=== PATIENT | male | born 1940 | race Caucasian/White ===

== ENCOUNTER 2020-11-29 17:04 | Inpatient (IN) | payer MEDICARE, BC ==
[~2020-11-29] VITALS: Ht 177.8 cm; Wt 68.9 kg
[2020-11-29] MEDS ORDERED: LISI2.5T2 PO (18:46)
[2020-11-29] MEDS ORDERED: ASCO-352 PO (18:46)
[2020-11-29] MEDS ORDERED: ATOR40TA PO (18:46)
[2020-11-29] MEDS ORDERED: MULT-447 PO (18:46)
[2020-11-29] MEDS ORDERED: UBID100C13 PO (18:46)
[2020-11-29] MEDS ORDERED: LEVE500T20 PO (18:46)
[2020-11-29] MEDS ORDERED: DONE10TA44 PO (18:46)
[2020-11-29] MEDS ORDERED: CARB1TAB21 PO (18:46)
[2020-11-29] MEDS ORDERED: FINA5TAB11 PO (18:46)
[2020-11-29] MEDS ORDERED: BUPR200T3 PO (18:46)
[2020-11-29] MEDS ORDERED: LORA10TA68 PO (18:46)
[2020-11-29] MEDS ORDERED: ASPI-1169 PO (18:47)
[2020-11-29] MEDS ORDERED: CHOL100062 PO (18:47)
[2020-11-29] MEDS ORDERED: CYAN500T9 PO (18:47)
--- NOTE | 2020-11-29 18:47 | NUR ---
CNC MECHANIC/MED RECON PATIENT UNABLE TO PROVIDE ANY INFORMATION RE: HOME MEDICATION. CALLED AND SPOKE WITH (ANTHONY [phone]). PATIENT PCP, DR. SAWYER [phone]. PER , PATIENT COMPLETED BOTH DOSE OF MODERNA COVID VACCINE. 2ND DOSE OBTAINED ON 07-15-2020. CN AWARE.
[2020-11-29 20:00] VITALS: BP 171/83
[2020-11-29] MEDS ORDERED: ACETAMINOPHEN 325 MG TABLET PO PRN (20:00)
[2020-11-29] MEDS ORDERED: MAG HYDROX/AL HYDROX/SIMETH 30 ML UDC PO PRN (20:00)
[2020-11-29] MEDS ORDERED: MAGNESIUM HYDROXIDE 30 ML UDC PO PRN (20:00)
[2020-11-29 20:10] VITALS: BP 158/82
[2020-11-29] MEDS ORDERED: BLOOD SUGAR DIAGNOSTIC 1 EACH STRIP IN ONE (21:00)
[2020-11-29] MEDS: CARBIDOPA/LEVODOPA 25/100 MG 1 UDTAB PO SCH (21:36)
[2020-11-29] MEDS: LORAZEPAM 0.5 MG TABLET PO PRN (21:36)
--- NOTE | 2020-11-29 21:40 | NUR ---
GPS RN NOTE: PATIENT IS RESTLESS, ANXIOUS AND AGITATED, UNABLE TO FOLLOW REDIRECTION. ATIVAN 0.5MG 1TAB GIVEN PO PRN ORDERED AT 2135. WILL CONTINUE TO MONITOR.
--- NOTE | 2020-11-29 21:50 | NUR ---
GPS ELECTRONIC PUBLISHING SPECIALIST NOTES: PATIENT WAS PLACED ON A 5150 HOLD ON 11/29/20 AT 0050 FOR DTO. PER HOLD, OFFICERS WERE CALLED BECAUSE PATIENT THREATENED FAMILY MEMBERS WITH A FRYING ATKINSON AND LEFT HOME AND WAS WALKING ON THE STREETS. PATIENT WAS PARANOID AND FELT HE HAS BEEN HELD AGAINST HIS WILL FOR MANY YEARS IN THE BASEMENT OF HIS HOME. PATIENT ARMED HIMSELF WITH A FRYING ATKINSON SO HE COULD ESCAPE. A WEEK PRIOR, PATIENT HAD TOLD HIS HE WISHED TO AND ALSO WISHED HE COULD KILL HER. UPON FACE TO FACE EVALUATION, PATIENT WAS A/O X1. LABILE, CONFUSED, DISORGANIZED, DISORIENTED, STATING "MY 2 YEAR OLD CHILDREN ARE WITH THEIR MOTHER IN A HOTEL BECAUSE THE HOTEL IS CHEAP", COMBATIVE, AGGRESSIVE, STRIKING AT STAFF, UNABLE TO FOLLOW REDIRECTION. PATIENT IS CURRENTLY ON PAPO CHAIR FOR HIS SAFETY. ATIVAN 0.5MG GIVEN PO PRN FOR AGITATION. NO S/S OF DISTRESS, NO C/O OF PAIN. RESPIRATION EVEN AND UNLABORED WITH EQUAL RISE AND FALL OF THE CHEST, ON ROOM AIR. ACCU CHEK DONE, BS 164MG/DL. SKIN ASSESSMENT DONE, PICTURES TAKEN AND PLACED IN PATIENT CHART. PATIENT UNABLE TO SIGN ADMISSION PAPERWORK D/T MENTAL STATUS. PATIENT ADVISED OF HIS HOLD AND PATIENT RIGHT HANDBOOK GIVEN. PATIENT IS UNDER THE PSYCHIATRIC CARE OF DR ANTONIO AND MEDICAL CARE OF [place]. PATIENT BELONGINGS WERE INVENTORIED AND CHECKED FOR CONTRABAND. CONTRABAND REMOVED AND STORED. ALL PATIENT CARE NEEDS HAVE BEEN MET AT THIS TIME. WILL CONTINUE TO MONITOR Q15 FOR SAFETY, MOOD AND BEHAVIOR.
[2020-11-30] MEDS: TEMAZEPAM 7.5 MG CAPSULE PO PRN (00:10)
--- NOTE | 2020-11-30 00:17 | NUR ---
GPS RN NOTES: RESTORIL 7.5MG/1CAP GIVEN PO PRN ORDERED AT 0010. WILL CONTINUE TO MONITOR.
[2020-11-30 06:47] LABS: BASOPHILS % (AUTO) 0.3 % (0.0-2.0); EOSINOPHILS % (AUTO) 1.4 % (0.0-6.0); HEMATOCRIT 44 % (39-51); HEMOGLOBIN 14.6 g/dL (13.5-17.5); LYMPHOCYTES # (AUTO) 1.1 K/uL (0.8-4.8); LYMPHOCYTES % (AUTO) 12.8 % (20.0-44.0); MEAN CORPUSCULAR HGB CONC 33 g/dl (31.0-36.0); MEAN CORPUSCULAR VOLUME 97 fL (80-96); MONOCYTES % (AUTO) 11.8 % (2.0-12.0); NEUTROPHILS # (AUTO) 6.5 K/uL (1.8-8.9); NEUTROPHILS % (AUTO) 73.7 % (43.0-81.0); PLATELET COUNT (AUTO) 169 K/uL (150-450); RED BLOOD CELL COUNT(AUTO) 4.52 MIL/uL (4.5-6.0); WHITE BLOOD COUNT (AUTO) 8.8 K/uL (4.3-11.0)
--- NOTE | 2020-11-30 07:01 | NUR ---
GPS RN NOTES: UNABLE TO CHART ADMISSION COVID-19 VACCINE STATUS ASSESSMENT BECAUSE PATIENT IS UNABLE TO GIVE INFORMATION ON VACCINATION STATUS. CALLED PATIENT ANTHONY MICHEL TO GET THE INFORMATION BUT NO ONE PICKED UP, AND VOICE MAIL IS FULL. WILL ENDORSE TO AM SHIFT TO FOLLOW UP AND CHART VACCINE STATUS.
[2020-11-30 07:14] LABS: THYROID STIMULATING HORMONE 1.903 uIU/mL (0.358-3.74)
--- NOTE | 2020-11-30 07:57 | NUR ---
WOUND CARE CONSULT: PT PRESENTS WITH RT ELBOW SKIN TEAR AND MULTIPLE AREAS OF SKIN DISCOLORATION AND SCARRING ON EXTREMITIES, PRESENT ON ADMISSION. RECOMMENDATIONS MADE FOR SKIN PROTECTION AND WOUND CARE. DISCUSSED WITH NURSING STAFF. IN AGREEMENT WITH PLAN OF CARE. Addendum: 11/30/20 at 0758 by MANOLO OCAMPO WNDNU Amended: Links added.
[2020-11-30 08:00] VITALS: BP 154/78
[2020-11-30] MEDS: ENSURE ENLIVE CHOC 237 ML CAN PO SCH ×2 (08:08→17:23)
[2020-11-30] MEDS: CYANOCOBALAMIN 500 MCG TABLET PO SCH ×2 (08:48→17:23)
[2020-11-30] MEDS: ASPIRIN 81 MG TAB.CHEW PO SCH (08:49)
[2020-11-30] MEDS: ASCORBIC ACID 500 MG TABLET PO SCH (08:49)
[2020-11-30] MEDS: LISINOPRIL (5MG) 5 MG TABLET PO SCH (08:49)
[2020-11-30] MEDS: FINASTERIDE (5 MG) 5 MG TABLET PO SCH (08:49)
[2020-11-30] MEDS: CARBIDOPA/LEVODOPA 25/100 MG 1 UDTAB PO SCH ×4 (08:49→21:24)
[2020-11-30] MEDS: CHOLECALCIFEROL 1,000 UNIT TABLET (VIT D3) PO SCH (08:50)
[2020-11-30] MEDS: MULTIVIT W/MINERALS 1 TAB TABLET PO SCH (08:50)
[2020-11-30] MEDS: LORATADINE 10 MG TABLET PO PRN (08:50)
[2020-11-30 09:00] LABS: ALBUMIN 3.2 g/dL (3.4-5.0); BILIRUBIN,TOTAL 0.7 mg/dL (0.2-1.0); CALCIUM, SERUM 8.5 mg/dL (8.5-10.1); CREATININE 1.3 mg/dL (0.6-1.3); MAGNESIUM 2.2 mg/dL (1.8-2.4); PHOSPHORUS 3.4 mg/dL (2.5-4.9); POTASSIUM 3.8 mmol/L (3.5-5.1); TOTAL PROTEIN, SERUM 6.8 g/dL (6.4-8.2)
[2020-11-30] MEDS ORDERED: Medication Not On Formulary EA (Ubidecarenone (Coq-10) 300 MG) PO SCH (09:00)
[2020-11-30] MEDS: LORAZEPAM 0.5 MG TABLET PO PRN (12:30)
[2020-11-30] MEDS: risperiDONE 0.25 MG TABLET PO SCH ×2 (12:30→21:24)
--- NOTE | 2020-11-30 12:31 | NUR ---
RN NOTE: ANXIETY AND AGITATION PT BANGING HANDS AND ARMS ON TABLE. PT EXHIBITING INCREASED ANXIETY AND AGITATION. MEDICATED WITH ATIVAN 0.5 MG PO PRN. WILL CONT TO MONITOR PT FOR SAFETY AND BEHAVIOR AND EFFECTIVENESS OF PRN MEDICATION
[2020-11-30 16:00] VITALS: BP 119/69
[2020-11-30] MEDS: DONEPEZIL 5 MG TABLET PO SCH (17:23)
[2020-11-30] MEDS: ATORVASTATIN 40 MG TABLET PO SCH (17:23)
[2020-11-30] MEDS: buPROPion SR 100 MG TABLET.ER PO SCH (17:23)
[2020-11-30 20:00] VITALS: BP 104/62
[2020-11-30 20:25] VITALS: BP 104/62
[2020-11-30 21:15] VITALS: BP 147/72
--- NOTE | 2020-11-30 21:15 | NUR ---
RN NOTE PATIENT'S VITALS ARE 147/72, 61, 18, 97.7, 99% AT RA. NO ACUTE CHANGES NOTED. WILL CONTINUE TO MONITOR.
--- NOTE | 2020-12-01 00:05 | NUR ---
RN NOTE PER AM RN REPORT WHO SPOKE TO PATIENT'S ANTHONY, REPORTED THAT PER PATIENT'S , PATIENT HAD COVID VACCINE MODERNA FIRST DOSE ON 06/15/20 & SECOND DOSE ON 07/15/20. DOCUMENTED UNDER INTERVENTIONS.
[2020-12-01] MEDS: Z GUARD REMEDY 2 OZ OINT TP PRN (03:37)
[2020-12-01 08:00] VITALS: BP 141/95
[2020-12-01] MEDS: ASPIRIN 81 MG TAB.CHEW PO SCH (08:23)
[2020-12-01] MEDS: CHOLECALCIFEROL 1,000 UNIT TABLET (VIT D3) PO SCH (08:23)
[2020-12-01] MEDS: MULTIVIT W/MINERALS 1 TAB TABLET PO SCH (08:23)
[2020-12-01] MEDS: CARBIDOPA/LEVODOPA 25/100 MG 1 UDTAB PO SCH ×4 (08:23→21:36)
[2020-12-01] MEDS: buPROPion SR 100 MG TABLET.ER PO SCH ×2 (08:23→16:41)
[2020-12-01] MEDS: ENSURE ENLIVE CHOC 237 ML CAN PO SCH ×2 (08:23→16:41)
[2020-12-01] MEDS: ASCORBIC ACID 500 MG TABLET PO SCH (08:24)
[2020-12-01] MEDS: CYANOCOBALAMIN 500 MCG TABLET PO SCH ×2 (08:24→16:42)
[2020-12-01] MEDS: FINASTERIDE (5 MG) 5 MG TABLET PO SCH (08:24)
[2020-12-01] MEDS: risperiDONE 0.25 MG TABLET PO SCH ×2 (08:24→21:36)
[2020-12-01] MEDS: LISINOPRIL (5MG) 5 MG TABLET PO SCH (08:24)
--- NOTE | 2020-12-01 10:16 | NUR ---
Family contact: SW contacted pts Patti ([phone]) about pts discharge plan. Patti reports that she would like pt to be placed in [facility] in located [place] [address] [address]. Patti reports that she she has been in contact with Uma Suarez ([phone]) from [facility] about the pts potential placement. Patti informs of pts psychologist information Dr. Christopher Ndiaye ([phone]) and his PCP Dr. Sukhwinder Mcgovern ([phone]). DAVEY will follow up with [facility] about pts discharge.
--- NOTE | 2020-12-01 10:25 | NUR ---
Facility Contact: DAVEY contacted [facility] and spoke with Coty Cintron marketing administrator ([phone]). Coty reports that she will have a nurse from [facility] contact DAVEY to schedule an evaluation for pt.
--- NOTE | 2020-12-01 12:06 | NUR ---
Initial discharge plan: Pt currently lives with his located at [address], [address]; ([phone]). Per pt he would liek to return to his home after discharge. Per pts , pt has potential placement at [facility] [address] [facility] [address] ([phone]). SW will work with the pt and the MD regarding appropriate discharge planning. SW will form a safe proper discharge.
[2020-12-01 16:00] VITALS: BP 122/75
[2020-12-01] MEDS: DONEPEZIL 5 MG TABLET PO SCH (17:26)
[2020-12-01] MEDS: ATORVASTATIN 40 MG TABLET PO SCH (17:26)
--- NOTE | 2020-12-01 19:30 | NUR ---
GPS RN NOTE, RECEIVED PATIENT AWAKE AND IN BED, NO S/S OR COMPLAINTS OF PAIN AT THIS TIME. PATIENT IS DISPLAYING NO S/S OF APPARENT DISTRESS AT THIS TIME. PATIENT BREATHING IS UNLABORED WITH EQUAL RISE AND FALL OF THE CHEST. PATIENT IS ALERT AND ORIENTED X 1 ON ROOM AIR WITH A SPO2 98%. PATIENT IS COMPLIANT WITH MEDICATIONS, CONFUSED, ANXIOUS, PARANOID, UNCOOPERATIVE, AND NEEDS REDIRECTION. PATIENT DENIES SUICIDAL AND HOMICIDAL IDEATIONS AT THIS TIME BUT IS CONFUSED. PATIENT ASSISTED WITH TURNING AND REPOSITIONING Q2HR AND PRN FOR COMFORT AND CIRCULATION. PATIENT HAS NO NEEDS AT THIS TIME. PATIENT EDUCATED ON THE USE OF THE CALL LIGHT. PATIENT BED SIDE RAILS UP X 2 FOR SAFETY. PATIENT BED IS LOCKED, LOW, WITH BED ALARM ON. WILL CONTINUE TO MONITOR THIS PATIENT Q15 MINUTES WITH THE HELP OF STAFF TO MAINTAIN SAFETY.
[2020-12-01 19:36] VITALS: BP 124/76
--- NOTE | 2020-12-01 22:00 | NUR ---
RN NOTES, ATTEMPT TO TAKE PICTURES FOR SKIN ISSUES, AND PATIENT BECAME AGITATED, PATIENT PLACED ON BED AND REDIRECTION PROVIDED, COVER WITH WARM BLANKETS AND ENCOURAGED TO TRY TO SLEEP, NOT ABLE TO TAKE PICTURES, WILL CONTINUE TO MONITOR Q15MIN FOR SAFETY AND BEHAVIOR.
[2020-12-02] MEDS: TEMAZEPAM 7.5 MG CAPSULE PO PRN (01:47)
--- NOTE | 2020-12-02 01:47 | NUR ---
GPS RN NOTE, PATIENT HAS A COMPLAINT OF NOT BEING ABLE TO SLEEP AND IS REQUESTING RESTORIL AT THIS TIME. PATIENT VITAL SIGNS ARE STABLE. GAVE RESTORIL 7.5MG PO HS ORDERED. WILL REASSESS FOR INSOMNIA AND I WILL CONTINUE TO MONITOR THIS PATIENT.
[2020-12-02 08:00] VITALS: BP 115/82
[2020-12-02] MEDS: ENSURE ENLIVE CHOC 237 ML CAN PO SCH ×2 (08:11→16:47)
[2020-12-02] MEDS: CHOLECALCIFEROL 1,000 UNIT TABLET (VIT D3) PO SCH (08:40)
[2020-12-02] MEDS: ASPIRIN 81 MG TAB.CHEW PO SCH (08:40)
[2020-12-02] MEDS: ASCORBIC ACID 500 MG TABLET PO SCH (08:40)
[2020-12-02] MEDS: buPROPion SR 100 MG TABLET.ER PO SCH ×2 (08:40→09:00)
[2020-12-02] MEDS: risperiDONE 0.25 MG TABLET PO SCH ×3 (08:40→21:17)
[2020-12-02] MEDS: MULTIVIT W/MINERALS 1 TAB TABLET PO SCH (08:40)
[2020-12-02] MEDS: FINASTERIDE (5 MG) 5 MG TABLET PO SCH (08:40)
[2020-12-02] MEDS: CARBIDOPA/LEVODOPA 25/100 MG 1 UDTAB PO SCH ×4 (08:40→21:16)
[2020-12-02] MEDS: CYANOCOBALAMIN 500 MCG TABLET PO SCH ×2 (08:40→16:47)
[2020-12-02] MEDS: LISINOPRIL (5MG) 5 MG TABLET PO SCH (08:41)
--- NOTE | 2020-12-02 09:53 | NUR ---
RN-NOTES RISPERDAL 0.25MG P.O AND WELLBUTRIN 100MG P.O NOT ADMINISTER DUE TO DOSE WAS GIVEN EARLIER @ 0800 AM.
--- NOTE | 2020-12-02 11:09 | NUR ---
Family contact: SW was contacted by pts Patti ([phone]) who inquired why pt was not being discharged from the hospital. SW explained that pt was put on a 14 day hold and will have a virtual court hearing for the hold sometime next week. SW reported that the indoor sports centre manager will determine whether the 14 day hold will be upheld. Patti reports that she would like SW to contact pts son Augusto ([phone]) about pts care. DAVEY will follow up with pts son at a later time.
[2020-12-02] MEDS: LORAZEPAM 0.5 MG TABLET PO PRN (13:45)
--- NOTE | 2020-12-02 13:46 | NUR ---
RN-NOTES NOTED PATIENT ANGRY AND AGITATED SWING HIS RIGHT HAND TO THE STAFF DURING MEAL TIME, REFUSED TO EAT LUNCH DESPITE ENCOURAGEMENT. ATIVAN 0.5MG P.O GIVEN PRN ORDER. WILL CONT. MONITORING FOR SAFETY AND BEHAVIOR.
--- NOTE | 2020-12-02 16:00 | NUR ---
Family contact: DAVEY contacted pts son Augusto Gomez ([phone]) to discuss pts discharge plan. DAVEY informed Augusto that pt was placed on a 5250 and that he will have a hearing to determine whether the hold will be upheld sometime next week. Augusto reports that he would like to be present during the hearing. DAVEY will send the hearing link to Augusto once it has been obtained.
[2020-12-02] MEDS: Z GUARD REMEDY 2 OZ OINT TP PRN (16:33)
[2020-12-02] MEDS: DONEPEZIL 5 MG TABLET PO SCH (17:39)
[2020-12-02] MEDS: ATORVASTATIN 40 MG TABLET PO SCH (17:39)
--- NOTE | 2020-12-02 19:30 | NUR ---
GPS RN NOTE, RECEIVED PATIENT AWAKE AND IN BED, NO S/S OR COMPLAINTS OF PAIN AT THIS TIME. PATIENT IS DISPLAYING NO S/S OF APPARENT DISTRESS AT THIS TIME. PATIENT BREATHING IS UNLABORED WITH EQUAL RISE AND FALL OF THE CHEST. PATIENT IS ALERT AND ORIENTED X 1 ON ROOM AIR WITH A SPO2 99%. PATIENT IS COMPLIANT WITH MEDICATIONS, CONFUSED, ANXIOUS, PARANOID, UNCOOPERATIVE, COMBATIVE WITH CARE, AND NEEDS REDIRECTION. PATIENT DENIES SUICIDAL AND HOMICIDAL IDEATIONS AT THIS TIME BUT IS CONFUSED. PATIENT ASSISTED WITH TURNING AND REPOSITIONING Q2HR AND PRN FOR COMFORT AND CIRCULATION. PATIENT HAS NO NEEDS AT THIS TIME. PATIENT EDUCATED ON THE USE OF THE CALL LIGHT. PATIENT BED SIDE RAILS UP X 2 FOR SAFETY. PATIENT BED IS LOCKED, LOW, WITH BED ALARM ON. WILL CONTINUE TO MONITOR THIS PATIENT Q15 MINUTES WITH THE HELP OF STAFF TO MAINTAIN SAFETY.
[2020-12-02 20:00] VITALS: BP 157/92
[2020-12-03 08:00] VITALS: BP 158/80
[2020-12-03] MEDS: ENSURE ENLIVE CHOC 237 ML CAN PO SCH ×2 (08:33→17:20)
[2020-12-03] MEDS: MULTIVIT W/MINERALS 1 TAB TABLET PO SCH (08:33)
[2020-12-03] MEDS: ASCORBIC ACID 500 MG TABLET PO SCH (08:34)
[2020-12-03] MEDS: CYANOCOBALAMIN 500 MCG TABLET PO SCH ×2 (08:34→17:20)
[2020-12-03] MEDS: risperiDONE 0.25 MG TABLET PO SCH ×2 (08:34→21:36)
[2020-12-03] MEDS: CARBIDOPA/LEVODOPA 25/100 MG 1 UDTAB PO SCH ×4 (08:34→21:35)
[2020-12-03] MEDS: FINASTERIDE (5 MG) 5 MG TABLET PO SCH (08:34)
[2020-12-03] MEDS: ASPIRIN 81 MG TAB.CHEW PO SCH (08:34)
[2020-12-03] MEDS: buPROPion SR 100 MG TABLET.ER PO SCH (08:34)
[2020-12-03] MEDS: CHOLECALCIFEROL 1,000 UNIT TABLET (VIT D3) PO SCH (08:34)
[2020-12-03] MEDS: LISINOPRIL (5MG) 5 MG TABLET PO SCH (08:35)
[2020-12-03 16:00] VITALS: BP 151/84
[2020-12-03] MEDS: DONEPEZIL 5 MG TABLET PO SCH (17:20)
[2020-12-03] MEDS: ATORVASTATIN 40 MG TABLET PO SCH (17:20)
[2020-12-03] MEDS: Z GUARD REMEDY 2 OZ OINT TP PRN (18:41)
[2020-12-04] MEDS: Z GUARD REMEDY 2 OZ OINT TP PRN (03:32)
[2020-12-04] MEDS: LORAZEPAM 0.5 MG TABLET PO PRN (05:53)
--- NOTE | 2020-12-04 05:55 | NUR ---
RN NOTE: ANXIETY/AGITATION NOTED PATIENT ANGRY, AGITATED, YELLING, ANXIOUS & RESTLESS. ATIVAN 0.5MG P.O GIVEN PRN ORDER. WILL CONT. MONITORING FOR SAFETY AND BEHAVIOR.
[2020-12-04 08:00] VITALS: BP 118/68
[2020-12-04] MEDS: ASPIRIN 81 MG TAB.CHEW PO SCH (09:22)
[2020-12-04] MEDS: buPROPion SR 100 MG TABLET.ER PO SCH (09:22)
[2020-12-04] MEDS: CARBIDOPA/LEVODOPA 25/100 MG 1 UDTAB PO SCH ×4 (09:22→20:52)
[2020-12-04] MEDS: CYANOCOBALAMIN 500 MCG TABLET PO SCH ×2 (09:25→17:53)
[2020-12-04] MEDS: CHOLECALCIFEROL 1,000 UNIT TABLET (VIT D3) PO SCH (09:25)
[2020-12-04] MEDS: ASCORBIC ACID 500 MG TABLET PO SCH (09:25)
[2020-12-04] MEDS: LISINOPRIL (5MG) 5 MG TABLET PO SCH (09:28)
[2020-12-04] MEDS: ENSURE ENLIVE CHOC 237 ML CAN PO SCH ×2 (09:40→17:53)
[2020-12-04] MEDS: risperiDONE 0.25 MG TABLET PO SCH ×2 (09:41→20:52)
[2020-12-04] MEDS: FINASTERIDE (5 MG) 5 MG TABLET PO SCH (09:41)
[2020-12-04] MEDS: MULTIVIT W/MINERALS 1 TAB TABLET PO SCH (09:41)
[2020-12-04 16:00] VITALS: BP 148/76
[2020-12-04] MEDS: ATORVASTATIN 40 MG TABLET PO SCH (18:05)
[2020-12-04] MEDS: DONEPEZIL 5 MG TABLET PO SCH (18:05)
[2020-12-04 20:00] VITALS: BP 157/82
[2020-12-04] MEDS: TEMAZEPAM 7.5 MG CAPSULE PO PRN (21:30)
[2020-12-05 08:00] VITALS: BP 133/65
[2020-12-05] MEDS: ENSURE ENLIVE CHOC 237 ML CAN PO SCH ×2 (09:17→17:27)
[2020-12-05] MEDS: CHOLECALCIFEROL 1,000 UNIT TABLET (VIT D3) PO SCH (09:17)
[2020-12-05] MEDS: ASPIRIN 81 MG TAB.CHEW PO SCH (09:18)
[2020-12-05] MEDS: LISINOPRIL (5MG) 5 MG TABLET PO SCH (09:18)
[2020-12-05] MEDS: CYANOCOBALAMIN 500 MCG TABLET PO SCH ×2 (09:18→17:28)
[2020-12-05] MEDS: MULTIVIT W/MINERALS 1 TAB TABLET PO SCH (09:19)
[2020-12-05] MEDS: buPROPion SR 100 MG TABLET.ER PO SCH (09:19)
[2020-12-05] MEDS: CARBIDOPA/LEVODOPA 25/100 MG 1 UDTAB PO SCH ×4 (09:19→20:57)
[2020-12-05] MEDS: ASCORBIC ACID 500 MG TABLET PO SCH (09:19)
[2020-12-05] MEDS: FINASTERIDE (5 MG) 5 MG TABLET PO SCH (09:20)
[2020-12-05] MEDS: risperiDONE 0.25 MG TABLET PO SCH ×2 (09:20→20:57)
--- NOTE | 2020-12-05 09:25 | NUR ---
Family contact: SW was contacted by pts Patti ([phone]) who informed SW of a SNF that she would like SW to refer pt to called [facility] ([phone]). DAVEY reports that she will send a referral to the facility. Patti reports that she would like to be present during the court hearing. DAVEY will email Patti the webex link for the court hearing.
--- NOTE | 2020-12-05 09:33 | NUR ---
Family contact: DAVEY contacted pts son Augusto Gomez ([phone]) to inform him that pt has his court hearing today at 4:00pm. DAVEY emailed the webex link to [email or web address]. DAEVY informed Augusto that she will also fax a referral to [facility].
--- NOTE | 2020-12-05 09:57 | NUR ---
Facility contact: DAVEY called Coty Cintron storage administrator at [facility] ([phone]) to discuss possible placement at the facility. DAVEY was unable to speak with anyone or leave a voicemail due to a busy phone line. DAVEY will attempt to contact [facility] at another time.
--- NOTE | 2020-12-05 09:59 | NUR ---
Facility Contact: DAVEY sent a referral to [facility] to fax number [phone].
[2020-12-05] MEDS: LORAZEPAM 0.5 MG TABLET PO PRN ×2 (15:50→20:57)
--- NOTE | 2020-12-05 15:50 | NUR ---
ATIVAN PRN GIVEN. PT RESTLESS, AGITATED AND ANXIOUS WITH ELEVATED B/P. WILL CONTINUE TO MONITOR.
--- NOTE | 2020-12-05 16:23 | NUR ---
Probable cause hearing: Pts 5250 hold was upheld on the grounds of gravely disabled.
[2020-12-05 16:25] VITALS: BP 147/99
[2020-12-05] MEDS: DONEPEZIL 5 MG TABLET PO SCH (17:27)
[2020-12-05] MEDS: ATORVASTATIN 40 MG TABLET PO SCH (17:31)
--- NOTE | 2020-12-05 18:52 | NUR ---
RN NOTE- PT IN NEED OF UA CULTURE PER ORDERS. IN &OUT CATH ORDERED BY DR ANTONIO. COMPLETED AND CX SENT TO LAB
[2020-12-05 19:12] LABS: BILIRUBIN,URINE NEGATIVE (NEGATIVE); COLOR,URINE YELLOW (YELLOW); LEUKOCYTE ESTERASE ,URINE NEGATIVE (NEGATIVE); NITRITE, URINE NEGATIVE (NEGATIVE); PROTEIN,URINE NEGATIVE (NEGATIVE); UGLUCOSE NEGATIVE (NEGATIVE)
[2020-12-05] MEDS: TEMAZEPAM 7.5 MG CAPSULE PO PRN (20:58)
[2020-12-06 08:00] VITALS: BP 139/74
--- NOTE | 2020-12-06 09:18 | NUR ---
Facility contact: DAVEY sent a referral to [facility] to fax #[phone].
[2020-12-06] MEDS: ENSURE ENLIVE CHOC 237 ML CAN PO SCH ×2 (09:30→16:57)
--- NOTE | 2020-12-06 09:30 | NUR ---
Facility contact: DAVEY sent a referral to [facility] to fax #[phone].
[2020-12-06] MEDS: CYANOCOBALAMIN 500 MCG TABLET PO SCH ×2 (09:39→17:05)
[2020-12-06] MEDS: CHOLECALCIFEROL 1,000 UNIT TABLET (VIT D3) PO SCH (09:39)
[2020-12-06] MEDS: risperiDONE 0.25 MG TABLET PO SCH ×2 (09:40→21:04)
[2020-12-06] MEDS: MULTIVIT W/MINERALS 1 TAB TABLET PO SCH (09:40)
[2020-12-06] MEDS: FINASTERIDE (5 MG) 5 MG TABLET PO SCH (09:40)
[2020-12-06] MEDS: ASPIRIN 81 MG TAB.CHEW PO SCH (09:40)
[2020-12-06] MEDS: CARBIDOPA/LEVODOPA 25/100 MG 1 UDTAB PO SCH ×4 (09:40→21:04)
[2020-12-06] MEDS: ASCORBIC ACID 500 MG TABLET PO SCH (09:40)
[2020-12-06] MEDS: LISINOPRIL (5MG) 5 MG TABLET PO SCH (09:41)
[2020-12-06 16:00] VITALS: BP 120/83
[2020-12-06] MEDS: ATORVASTATIN 40 MG TABLET PO SCH (17:04)
[2020-12-06] MEDS: DONEPEZIL 5 MG TABLET PO SCH (17:04)
[2020-12-06 20:00] VITALS: BP 136/68
[2020-12-07] MEDS: ENSURE ENLIVE CHOC 237 ML CAN PO SCH ×2 (08:00→17:41)
[2020-12-07] MEDS: ASCORBIC ACID 500 MG TABLET PO SCH (09:00)
[2020-12-07] MEDS: LISINOPRIL (5MG) 5 MG TABLET PO SCH (09:00)
[2020-12-07] MEDS: FINASTERIDE (5 MG) 5 MG TABLET PO SCH (09:00)
[2020-12-07] MEDS: risperiDONE 0.25 MG TABLET PO SCH ×2 (09:00→20:26)
[2020-12-07] MEDS: CARBIDOPA/LEVODOPA 25/100 MG 1 UDTAB PO SCH ×4 (09:00→20:27)
[2020-12-07] MEDS: ASPIRIN 81 MG TAB.CHEW PO SCH (09:00)
[2020-12-07] MEDS: CHOLECALCIFEROL 1,000 UNIT TABLET (VIT D3) PO SCH (09:00)
[2020-12-07] MEDS: MULTIVIT W/MINERALS 1 TAB TABLET PO SCH (09:00)
[2020-12-07] MEDS: CYANOCOBALAMIN 500 MCG TABLET PO SCH ×2 (09:00→17:48)
[2020-12-07 09:19] VITALS: BP 113/67
--- NOTE | 2020-12-07 11:50 | NUR ---
Family contact: SW contacted pts Patti ([phone]) to discuss pts discharge plan. Patti did not answer the phone call and SW was unable to leave a voicemail because the voicemail is not set up. DAVEY will attempt to call pts at another time.
--- NOTE | 2020-12-07 11:56 | NUR ---
Facility Contact: DAVEY contacted [facility] and spoke with Uma ([phone]) who stated they are waiting on a report from the psychiatrist to state whether or not the pt is a right fit for their facility. Uma reports that the facility is worried about the mental status of the pt. Uma reports that if the psychiatrist reports that the pt is fit for the facility they will have an cras evaluate the pt. DAVEY will follow up with [facility] about pts care at a later time.
--- NOTE | 2020-12-07 14:23 | NUR ---
Family contact: DAVEY contacted pts Patti ([phone]) and informed her that the psychiatrist believes that pt should be referred to a detention facility. SW informed Patti that she has referred pt to [facility] and [facility]. DAVEY will follow up with both facilities and keep Patti updated.
[2020-12-07 16:38] VITALS: BP 127/73
[2020-12-07] MEDS: ATORVASTATIN 40 MG TABLET PO SCH (17:47)
[2020-12-07] MEDS: DONEPEZIL 5 MG TABLET PO SCH (17:48)
[2020-12-07] MEDS: TEMAZEPAM 7.5 MG CAPSULE PO PRN (20:26)
[2020-12-07 20:42] VITALS: BP 134/83
[2020-12-08 08:00] VITALS: BP 138/82
[2020-12-08] MEDS: ENSURE ENLIVE CHOC 237 ML CAN PO SCH ×2 (08:03→16:56)
[2020-12-08] MEDS: ASPIRIN 81 MG TAB.CHEW PO SCH (08:33)
[2020-12-08] MEDS: LORATADINE 10 MG TABLET PO PRN (08:33)
[2020-12-08] MEDS: MULTIVIT W/MINERALS 1 TAB TABLET PO SCH (08:33)
[2020-12-08] MEDS: risperiDONE 0.25 MG TABLET PO SCH ×2 (08:34→21:00)
[2020-12-08] MEDS: ASCORBIC ACID 500 MG TABLET PO SCH (08:34)
[2020-12-08] MEDS: CARBIDOPA/LEVODOPA 25/100 MG 1 UDTAB PO SCH ×4 (08:34→21:36)
[2020-12-08] MEDS: LISINOPRIL (5MG) 5 MG TABLET PO SCH (08:35)
[2020-12-08] MEDS: CHOLECALCIFEROL 1,000 UNIT TABLET (VIT D3) PO SCH (08:35)
[2020-12-08] MEDS: CYANOCOBALAMIN 500 MCG TABLET PO SCH ×2 (08:35→17:00)
[2020-12-08] MEDS: FINASTERIDE (5 MG) 5 MG TABLET PO SCH (08:36)
--- NOTE | 2020-12-08 08:57 | NUR ---
SNF Referral: DAVEY faxed referral to [facility] to fax # [phone]
--- NOTE | 2020-12-08 08:58 | NUR ---
SNF Referral: DAVEY faxed SNF referral to [facility] to fax #[phone]
--- NOTE | 2020-12-08 10:40 | NUR ---
Facility contact: DAVEY contacted [facility] and spoke with Katya ([phone]) and inquired if pt was accepted into the facility. Katya reports that she will follow up with DAVEY later today.
--- NOTE | 2020-12-08 10:42 | NUR ---
SNF referral: [facility] will accept pt upon discharge.
--- NOTE | 2020-12-08 10:42 | NUR ---
SNF Referral: [facility] will accept pt upon discharge.
--- NOTE | 2020-12-08 10:46 | NUR ---
SNF referral: DAVEY contacted [facility] ([phone]) and inquired if pt was accepted to their facility. DAVEY was unable to speak with admissions and [facility] reports they will call DAVEY at a later time.
--- NOTE | 2020-12-08 14:31 | NUR ---
SNF Referral: DAVEY faxed referral to [facility] to fax # [phone].
--- NOTE | 2020-12-08 14:32 | NUR ---
SNF referral: [facility] accept pt upon discharge.
--- NOTE | 2020-12-08 14:32 | NUR ---
SNF referral: [facility] will not accept pt.
[2020-12-08 16:00] VITALS: BP 111/59
[2020-12-08] MEDS: ATORVASTATIN 40 MG TABLET PO SCH (17:01)
[2020-12-08] MEDS: DONEPEZIL 5 MG TABLET PO SCH (17:01)
--- NOTE | 2020-12-08 18:32 | NUR ---
RN-CO:PT'S AT BEDSIDE, WE NOTICED THAT PT HAS EYES WIDE OPEN , BUT NOT RESPONDING TO VERBAL AND TACTILE STIMULI.(SIMILAR TO CATATONIC STATE) PT CAN BLINK , V/S ARE FOLLOWS 110/70, 70, 18. PAGED DR ANTONIO , AWAITING TO CALL BACK.
--- NOTE | 2020-12-08 18:42 | NUR ---
RN-CO: DR ANTONIO CALLED BACK WITH ORDER TO CALL DR MAR, PAGED DR MAR, AWAITING TO CALL BACK.
--- NOTE | 2020-12-08 18:47 | NUR ---
RN-CO: CALLED RAPID RESPONSE. RAPID RESPONSE CAME AT 6:48 PM. 6:49 PM CALLED CODE STROKE. PER DR STEIN'S ORDER. 1899 PATIENT WITH WAS TAKEN TO CT SCAN DEPT. AWAITING FOR THE RESULT.
[2020-12-08 19:24] LABS: BASOPHILS # (AUTO) 0.1 K/uL (0.0-0.2); BASOPHILS % (AUTO) 0.6 % (0.0-2.0); HEMATOCRIT 43 % (39-51); HEMOGLOBIN 14.3 g/dL (13.5-17.5); LYMPHOCYTES % (AUTO) 9.7 % (20.0-44.0); MEAN CORPUSCULAR HGB CONC 34 g/dl (31.0-36.0); MEAN CORPUSCULAR VOLUME 95 fL (80-96); MONOCYTES # (AUTO) 1.2 K/uL (0.1-1.30); MONOCYTES % (AUTO) 12.4 % (2.0-12.0); NEUTROPHILS # (AUTO) 7.5 K/uL (1.8-8.9); NEUTROPHILS % (AUTO) 76.3 % (43.0-81.0); PLATELET COUNT (AUTO) 185 K/uL (150-450); RED BLOOD CELL COUNT(AUTO) 4.49 MIL/uL (4.5-6.0); WHITE BLOOD COUNT (AUTO) 9.8 K/uL (4.3-11.0)
--- NOTE | 2020-12-08 19:27 | NUR ---
RN-CO: I READ THE REPORT OF CT TO DR STEIN WITH ORDER TO DISCHARGE PT TO TELE. NURSE PRIVATE DUTY MADE AWARE. DR ANTONIO NOTIFIED AND ORDERED TO DC PT TO TEL AND DISCONTINUE LEGAL HOLD.
--- NOTE | 2020-12-08 19:35 | NUR ---
GPS RN NOTES: PATIENT NOTED AT THIS TIME TO BE RESPONDING TO SIMPLE QUESTIONS. NO AGGRESSIVE BEHAVIOR NOTED. STAYED IN THE ROOM FOR A WHILE WHILE AWAITING FOR TRANSFER TO [facility]. REPORT GIVEN TO PAPO RANDHAWA OF [facility]. CHINO STEIN NP MADE AWARE OF PATIENT HR ON MONITOR. STAT EKG DONE. RESULTS RELAYED TO CHINO STEIN. HR TAKEN MANUALLY 70BPM.
[2020-12-08 19:43] LABS: ALBUMIN 3.1 g/dL (3.4-5.0); BILIRUBIN,TOTAL 0.6 mg/dL (0.2-1.0); CALCIUM, SERUM 8.4 mg/dL (8.5-10.1); CREATININE 1.3 mg/dL (0.6-1.3); POTASSIUM 4.4 mmol/L (3.5-5.1); TOTAL PROTEIN, SERUM 6.9 g/dL (6.4-8.2)
[2020-12-08 19:55] VITALS: BP 111/59
[2020-12-08] MEDS ORDERED: TRAZODONE 50 MG TABLET PO SCH (22:00)
--- NOTE | 2020-12-08 22:30 | NUR ---
GPS RN NOTES: PATIENT TRANSPORTED TO [facility] VIA BED BY CHIEF OPERATOR HYDROFORMER AND ANOTHER HOSPITAL SALES REPRESENTATIVE. PATIENT WAS TRANSPORTED WITH MONITOR ON GOING. PATIENT WAS AWAKE AND TALKING DURING THE TRANSPORT.
[2020-12-09] MEDS ORDERED: risperiDONE 0.25 MG TABLET PO SCH (17:00)
[2020-12-10] MEDS ORDERED: LEVE250T2 PO (10:51)
== END 2020-12-08 22:30 | DRG 885 ==
LOC: GPS 18:12
PROVIDERS: ADMIT Psychiatry & Neurology Psychiatry; ATTEND Family Medicine
DX: F32.3 Major depressive disorder, single episode, severe with psychotic features (principal); F01.51 Vascular dementia, unspecified severity, with behavioral disturbance; E43 Unspecified severe protein-calorie malnutrition; F02.81 Dementia in other diseases classified elsewhere, unspecified severity, with behavioral disturbance; F29 Unspecified psychosis not due to a substance or known physiological condition; E78.5 Hyperlipidemia, unspecified; I10 Essential (primary) hypertension; N40.0 Benign prostatic hyperplasia without lower urinary tract symptoms; G20 Parkinson's disease; R45.850 Homicidal ideations; Z73.6 Limitation of activities due to disability; R53.1 Weakness; R27.8 Other lack of coordination; Z91.81 History of falling; F41.9 Anxiety disorder, unspecified
CPT/HCPCS: 36415; 70450-TC; 71045-TC; 80053-TC; 80061-TC; 82962-TC; 83735-TC; 84100-TC; 84443-TC; 85025-TC; 97112-TC; 97116-TC; 97530-TC